=== PATIENT | male | born 1970 | race Caucasian/White ===

== ENCOUNTER 2018-09-15 20:29 | Emergency (ER) | payer SELFPAY ==
--- NOTE | 2018-09-15 20:39 | PDOC ---
Rapid Medical Evaluation Time Seen by Provider: 09/15/18 20:36 Medical Evaluation: 09/15/18 20:36 HPI: C/o total body rash and itching; Pelaez of trunk fell on back of head yesterday as well. No LOC, nausea, vomiting, has mild dizziness PE: appears to have a contact dermatitis R L and B arms; small sub cm escar on posterior aspect of parietal scalp ORDERS: nothing Discharge Disposition - Diagnosis Contact dermatitis, Closed head injury - Referrals - Patient Instructions - Post Discharge Activity
[2018-09-15 20:47] VITALS: BP 125/88; PULSE 109; TEMP 98.2; BMI 27.4
[2018-09-15] MEDS ORDERED: diphenhydrAMINE HCL 25 MG CAPSULE (FP) PO ONE ×2 (21:20→21:25)
--- NOTE | 2018-09-15 21:25 | PDOC ---
History of Present Illness - General Chief Complaint: Rash Stated Complaint: ALLERGIC REACTION/LACERATION Time Seen by Provider: 09/15/18 20:36 History Source: Patient Exam Limitations: No Limitations - History of Present Illness Initial Comments: 09/15/18 21:23 HISTORY OF PRESENT ILLNESS: 48-year-old male denies medical history presents emergency department for evaluation of rash to bilateral arms legs and face starting yesterday. Patient reports he was working in the yard mowing grass and cutting weeds when he noticed to have itching to his hands patient has numbness around his face and then his face became itchy also. He denies any shortness of breath, visual disturbances, fevers, chills or throat itching. Additionally the patient was backing his car was living in his trunk when the trunk fell striking him in the back of the head. He denies any loss of consciousness but sustained a laceration to the occiput. Denies any blurry vision or dizziness. Td is UTD. No recent travel or sick contacts. PAST MEDICAL HISTORY: Denies past medical history SURGICAL HISTORY: Denies ALLERGIES: No known drug allergies REVIEW OF SYSTEMS General/Constitutional: Denies fever or chills. Denies weakness, weight change. HEENT: Denies change in vision. Denies ear pain or discharge. Denies sore throat. Cardiovascular: Denies chest pain or shortness of breath. Respiratory: Denies cough, wheezing, or hemoptysis. Gastrointestinal: Denies nausea, vomiting, diarrhea or constipation. Denies rectal bleeding. Genitourinary: Denies dysuria, frequency, or change in urination. Musculoskeletal: Denies joint or muscle swelling or pain. Denies neck or back pain. Skin and breasts: see HPI Neurologic: Denies headache, vertigo, loss of consciousness, or loss of sensation. Psychiatric: Denies depression or anxiety. Endocrine: Denies increased thirst. Denies abnormal weight change. Hematologic/Lymphatic: Denies anemia, easy bleeding, or history of blood clots. Allergic/Immunologic: Denies hives or skin allergy. Denies latex allergy. PHYSICAL EXAM General Appearance: Well-appearing, appropriately dressed. No apparent distress , no intoxication. HEENT: EOMI, PERRLA, normal ENT inspection, normal voice, TMs normal, pharynx normal. No conjunctival pallor. No photophobia, scleral icterus. Respiratory/Chest: Lungs CTAB. No shortness of breath, chest tenderness, respiratory distress, accessory muscle use. No crackles, rales, rhonchi, stridor , wheezing, dullness Cardiovascular: RRR. S1, S2. No JVD, murmur, bradycardia, tachycardia. Integumentary: Scattered erythematous pruritic rash present to bilateral lower extremities, bilateral hands, wrists, forearms and bilateral eyes. Approximately 0.5 cm laceration present to the occiput. Scab present. 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 Fully oriented, alert. Appropriate mood/affect. Motor strength 5/5. No appreciable EOM palsy, facial droop or sensory deficit. 09/15/18 21:25 Past History - Past Medical History Allergies/Adverse Reactions: Allergies Allergy/AdvReac Type Severity Reaction Status Date / Time No Known Allergies Allergy Verified 09/15/18 20:43 COPD: No - Suicide/Smoking/Psychosocial Hx Smoking History: Unknown if ever smoked Have you smoked in the past 12 months: No Information on smoking cessation initiated: No Hx Alcohol Use: No Drug/Substance Use Hx: No *Physical Exam - Vital Signs Last Vital Signs Temp Pulse Resp BP Pulse Ox 98.2 F 109 H 16 125/88 100 09/15/18 20:42 09/15/18 20:42 09/15/18 20:42 09/15/18 20:42 09/15/18 20:42 Medical Decision Making - Medical Decision Making 09/15/18 21:21 A/P: 48-year-old male diffuse rash to upper body, legs and face The appearance is consistent with poison ehsan rash Benadryl 25 mg orally now Discharge home with instructions on oatmeal baths and antihistamine usage. *DC/Admit/Observation/Transfer Diagnosis at time of Disposition: Toxicodendron dermatitis Closed head injury Qualifiers: Encounter type: initial encounter Qualified Code(s): S09.90XA - Unspecified injury of head, initial encounter - Discharge Dispostion Disposition: HOME Condition at time of disposition: Stable Decision to Admit order: No - Referrals - Patient Instructions Printed Discharge Instructions: DI for Closed Head Injury Additional Instructions: Place one cup of raw unflavored oats into a marine electronics repairer food and nutrition professor custom grinder. Blend the oats into a fine powdered texture. Take these particles spread throughout bathwater Stir Until the oatmeal is thoroughly blended into the water. Soak for 15-30 minutes. Apply calamine lotion to affected areas to help relieve itching. You may take Zyrtec/Claritin/Lucille during the day and Benadryl 25 mg every night as needed for itching Return to emergency department for any worsening itching, fevers or any other concerns. Thank you very much for choosing us to provide for emergent health care needs. - Post Discharge Activity
== END 2018-09-15 21:28 | disposition home or self-care (01) ==
LOC: JER 20:29
DX: L30.8 Other specified dermatitis (principal)
CPT/HCPCS: 99281-25

== ENCOUNTER 2018-09-17 11:08 | Emergency (ER) | payer SELFPAY ==
[2018-09-17 11:19] VITALS: BP 125/96; PULSE 94; TEMP 97.8; BMI 26.6
[2018-09-17] MEDS ORDERED: DEXAMETHASONE SOD PHOSPHATE 10 MG/1 ML VIAL IM ONE (12:14)
[2018-09-17] MEDS ORDERED: DEXAMETHASONE SOD PHOSPHATE 10 MG/1 ML VIAL ONE (12:15)
[2018-09-17] MEDS ORDERED: diphenhydrAMINE HCL 25 MG CAPSULE (FP) PO ONE ×2 (12:25→12:30)
--- NOTE | 2018-09-17 12:27 | PDOC ---
History of Present Illness - General Chief Complaint: Poison Almond,Poison Ronda Exposure Stated Complaint: ALLERGIC REACTION Time Seen by Provider: 09/17/18 12:06 History Source: Patient - History of Present Illness Initial Comments: 09/17/18 13:23 Chief complaint: Poison ronda Patient 48-year-old male with no significant medical history states he developed poison ronda earlier in the week, was seen in the ER 2 days ago but it was not this bad. Patient was sent home with Benadryl and he told to use Aveeno. Patient now has facial swelling, he states he had a little bit of throat tightening last night which she does not have now and the rash is spread to most of his body including his genitals. He has no fever. GENERAL/CONSTITUTIONAL: No fever, weakness. dizziness HEAD, EYES, EARS, NOSE AND THROAT: No change in vision. No ear pain or discharge. No sore throat. CARDIOVASCULAR: No chest pain RESPIRATORY: No shortness of breath or cough GASTROINTESTINAL: No pain, nausea, vomiting, diarrhea or constipation GENITOURINARY: No dysuria MUSCULOSKELETAL: No neck or back pain SKIN: + rash NEUROLOGIC: No headache, vertigo, loss of consciousness, or loss of sensation. GENERAL: The patient is awake, alert, and fully oriented, in no acute distress. HEAD: Normal with no signs of trauma. EYES: Pupils equal, round and reactive to light, sclera anicteric, conjunctiva clear. ENT: pharynx: no erythema, no exudate, uvula midline NECK: supple CHEST: clear, nontender, rr ABD: soft, nontender BACK: no tenderness or signs of injury EXTREMITIES: Normal range of motion, no edema. NEUROLOGICAL: Normal speech, normal gait. SKIN: Warm, Dry, diffuse pruritic rash, vesicles, facial swelling. No signs of secondary infection/cellulitis Past History - Past Medical History Allergies/Adverse Reactions: Allergies Allergy/AdvReac Type Severity Reaction Status Date / Time No Known Allergies Allergy Verified 09/17/18 11:19 Home Medications: Ambulatory Orders Prednisone [Deltasone] 20 mg PO DAILY #30 tablet 09/17/18 COPD: No - Surgical History Abdominal Surgery: (SBO) - Suicide/Smoking/Psychosocial Hx Smoking History: Current every day smoker Have you smoked in the past 12 months: No Number of Cigarettes Smoked Daily: 10 Information on smoking cessation initiated: No Hx Alcohol Use: Yes (OCCASIONALLY) Drug/Substance Use Hx: No *Physical Exam - Vital Signs Last Vital Signs Temp Pulse Resp BP Pulse Ox 97.8 F 94 H 16 125/96 98 09/17/18 11:15 09/17/18 11:15 09/17/18 11:15 09/17/18 11:15 09/17/18 11:15 ED Treatment Course - Medications Given in the ED: ED Medications Discontinued Medications Generic Name Dose Route Start Last Admin Trade Name Jaclyn PRN Reason Stop Dose Admin Dexamethasone Sodium Phosphate 10 mg 09/17/18 12:14 09/17/18 12:17 Decadron Injection - IM 09/17/18 12:15 10 mg ONCE ONE Administration Medical Decision Making - Medical Decision Making 09/17/18 13:27 48-year-old healthy male with worsening poison ronda treated symptomatically 2 days ago with Benadryl and Aveeno, now more widespread, with involvement of the genitals. Patient has no shortness of breath although he fell throat tightening last night. Patient appears stable, no signs of secondary cellulitis. We'll give patient Decadron 10 mg IM in the ER, Benadryl as patient is not driving home. Will start patient on tapering prednisone over 15 days, 60 mg 5 days, 40 mg 5 days and then 20 mg 5 days to avoid rebound. Patient will take Benadryl for itching and Pepcid to prevent reaction from prednisone and to help with reaction. Discussed issues, findings, results, applicable medications and treatments and follow-up. All these were understood and all questions were answered *DC/Admit/Observation/Transfer Diagnosis at time of Disposition: Poison ronda dermatitis - Discharge Dispostion Disposition: HOME Condition at time of disposition: Stable Decision to Admit order: No - Prescriptions Prescriptions: Prednisone [Deltasone] 20 mg PO DAILY #30 tablet - Referrals - Patient Instructions Printed Discharge Instructions: DI for Poison Ronda Allergy Additional Instructions: take benadryl 25-50 mg every 4 hours for itching take prednisone as directed until finished, start tomorrow take pepcid 20 mg once daily which will help with the reaction and protect your stomach for any upset from the prednisone return to the er if short of breath, difficulty breathing, or getting worse. otherwise follow up with your doctor in 2-3 days - Post Discharge Activity
== END 2018-09-17 12:34 | disposition home or self-care (01) ==
LOC: JERFT 11:08
PROC: 3E0233Z Introduction of Anti-inflammatory into Muscle, Percutaneous Approach (ICD-10-PCS; principal; 2018-09-17)
DX: L23.7 Allergic contact dermatitis due to plants, except food (principal)
CPT/HCPCS: 99281-25; J1100

== ENCOUNTER 2021-12-22 01:39 | Emergency (ER) | payer OTHER ==
[2021-12-22 02:03] VITALS: BP 109/73; PULSE 104; RESP 20; TEMP 98.9; BMI 25.8
[2021-12-22] MEDS ORDERED: PENICILLIN V POTASSIUM 500 MG TABLET PO ONE (02:44)
[2021-12-22] MEDS ORDERED: metroNIDAZOLE 250 MG TABLET PO ONE (02:45)
[2021-12-22] MEDS ORDERED: metroNIDAZOLE 250 MG TABLET ONE (02:58)
== END 2021-12-22 04:22 | disposition home or self-care (01) ==
LOC: JER 01:39
DX: K02.9 Dental caries, unspecified (principal)
CPT/HCPCS: 99283-25